=== PATIENT | male | born 1950 | race Caucasian/White ===

== ENCOUNTER → 2021-05-10 | Outpatient (CLI) | payer MEDICARE, OTHER ==
[2021-05-10 12:05] LABS: HEMOGLOBIN 16.5 gm/dl (14.0-17.5); RED BLOOD COUNT 5.74 M/UL (4.20-5.50)
[2021-05-10 12:30] LABS: BUN/CREATININE RATIO 11 (0-10)
[2021-05-11 08:12] LABS: THYROXINE (T4) 7.2 ug/dL (4.5-12.0); VITAMIN D, 25-HYDROXY 36.3 ng/mL (30.0-100.0)
== END ==
LOC: LAB 10:38
PROVIDERS: Nurse Practitioner
DX: Z12.5 Encounter for screening for malignant neoplasm of prostate (principal); I48.91 Unspecified atrial fibrillation; E78.5 Hyperlipidemia, unspecified; R53.83 Other fatigue; Z95.0 Presence of cardiac pacemaker
CPT/HCPCS: 36415; 80053; 80061; 84436; 84443; 84480; 85025; G0103